=== PATIENT | female | born 2000 | race Caucasian/White ===

== ENCOUNTER 2020-12-23 07:56 | Inpatient (IN) ==
[2020-12-23] MEDS ORDERED: Azithromycin 500 MG in 0.9 % Sodium Chloride 250 ML IVPB ONE (08:13)
[2020-12-23] MEDS ORDERED: Famotidine 20 MG/2 ML VIAL IVP PRN (08:13)
[2020-12-23] MEDS ORDERED: Lidocaine 1% 20 ML MDV ID PRN (08:13)
[2020-12-23] MEDS ORDERED: Metoclopramide 10 MG/2 ML VIAL IVP PRN (08:13)
[2020-12-23] MEDS ORDERED: *HR* Nalbuphine 10 MG/ML AMPUL IV PRN (08:13)
[2020-12-23] MEDS ORDERED: Ondansetron 4 MG/2 ML VIAL IVP PRN ×2 (08:13→10:13)
[2020-12-23] MEDS ORDERED: Naloxone 0.4 MG/ML INJ IVP PRN ×2 (08:13→10:13)
[2020-12-23 09:02] LABS: Basophils # 0.1 K/mcL (0.0-0.2); Basophils % 0.4 %; Eosinophils # 0.1 K/mcL (0.0-0.6); Eosinophils % 0.9 %; Hematocrit 34.1 % (35.3-44.9); Hemoglobin 11.1 g/dL (11.5-15.4); Immature Granulocytes % 0.9 % (0-4); Lymphocytes % 23.4 %; Mean Corpuscular HGB Conc 32.6 g/dL (31.6-35.5); Mean Corpuscular Hemoglobin 28.1 pg (28.0-33.3); Mean Corpuscular Volume 86.3 fL (83.0-100.0); Mean Platelet Volume 10.3 fL (9.4-12.4); Monocytes # 0.7 K/mcL (0.0-1.3); Monocytes % 5.6 %; Neutrophils # 8.7 K/mcL (1.6-8.9); Platelet Count 304 K/mcL (140-400); Red Blood Count 3.95 M/mcL (3.82-4.97); Red Cell Distribution Width 13.6 % (11.5-14.5); Segmented Neutrophils % 68.8 %; White Blood Count 12.6 K/mcL (4.3-11.1)
[2020-12-23 09:52] LABS: Amphetamine Screen,Urine Negative ng/mL (Cutoff=1000); Barbiturate Screen,Urine Negative ng/mL (Cutoff=200)
[2020-12-23] MEDS: miSOPROStoL 25 MCG TABLET VG PRN ×2 (09:53→14:28)
[2020-12-23 09:54] LABS: Benzodiazepines Screen,Urine Negative ng/mL (Cutoff=300); Cannabinoid Screen,Urine Negative ng/mL (Cutoff = 50); Cocaine Screen,Urine Negative ng/mL (Cutoff= 300); Opiate Screen,Urine Negative ng/mL (Cutoff=300); Phencyclidine Screen,Urine Negative ng/mL (Cutoff=25)
[2020-12-23] MEDS ORDERED: EPHEDrine 50 MG/ML VIAL IVP PRN (10:13)
[2020-12-23] MEDS ORDERED: Ropivacaine/PF 0.2% 20 ML VIAL EP ONE (10:13)
[2020-12-23] MEDS ORDERED: Epidural Premix (fent/bupiv) 110 ML EP SCH (10:15)
[2020-12-23] MEDS ORDERED: Ringers Solution, Lactated 1,000 ML ONE ×2 (18:31→23:21)
[2020-12-23] MEDS ORDERED: Oxytocin 20 units/ LR 1000 mL 20 UNIT/1,000 ML BAG IVC SCH (20:15)
[2020-12-24] MEDS ORDERED: Ringers Solution, Lactated 1,000 ML ONE (06:22)
[2020-12-24] MEDS ORDERED: Ropivacaine/PF 0.2% 20 ML VIAL ONE (07:22)
[2020-12-24] MEDS ORDERED: Lidocaine -MPF 2% 5 ML VIAL ONE (08:46)
[2020-12-24] MEDS ORDERED: *HR* FentaNYL (PF) 100 MCG/2 ML VIAL ONE (10:17)
[2020-12-24] MEDS ORDERED: *HR* FentaNYL (PF) 100 MCG/2 ML VIAL IVP ONE (10:19)
[2020-12-24] MEDS ORDERED: Acetaminophen 325 MG TABLET PO PRN (12:50)
[2020-12-24] MEDS ORDERED: Oxytocin 20 units/ LR 1000 mL 20 UNIT/1,000 ML BAG IVC SCH (12:50)
[2020-12-24] MEDS ORDERED: Lanolin 7 G OINT...G. TP PRN (12:50)
[2020-12-24] MEDS ORDERED: Benzocaine/Menthol 56 GM AEROSOL SPRAY TP PRN (12:50)
[2020-12-24] MEDS: Ibuprofen 600 MG TABLET PO PRN ×2 (14:50→23:24)
[2020-12-24] MEDS ORDERED: miSOPROStoL 100 MCG TABLET RC ONE (16:58)
[2020-12-25 03:34] LABS: Basophils # 0.1 K/mcL (0.0-0.2); Basophils % 0.3 %; Eosinophils # 0.1 K/mcL (0.0-0.6); Eosinophils % 0.5 %; Hematocrit 31.2 % (35.3-44.9); Hemoglobin 10.3 g/dL (11.5-15.4); Immature Granulocytes % 0.5 % (0-4); Lymphocytes # 3.5 K/mcL (0.6-4.6); Lymphocytes % 23.8 %; Mean Corpuscular Hemoglobin 29.3 pg (28.0-33.3); Mean Corpuscular Volume 88.6 fL (83.0-100.0); Mean Platelet Volume 10.3 fL (9.4-12.4); Neutrophils # 9.9 K/mcL (1.6-8.9); Platelet Count 270 K/mcL (140-400); Red Blood Count 3.52 M/mcL (3.82-4.97); Red Cell Distribution Width 13.9 % (11.5-14.5); Segmented Neutrophils % 67.9 %; White Blood Count 14.7 K/mcL (4.3-11.1)
[2020-12-25 08:21] VITALS: BP 137/90
[2020-12-25] MEDS ORDERED: Prenatal Vit/FA 1 EACH TABLET PO SCH (09:00)
== END 2020-12-25 12:00 | disposition home or self-care (01) | DRG 806 ==
LOC: 1NENULAB 07:56 → 1NENUOBS 12-24 12:37
PROVIDERS: ADMIT Obstetrics & Gynecology; ATTEND Obstetrics & Gynecology